=== PATIENT | female | born 1990 | race Caucasian/White ===

== ENCOUNTER → 2021-03-18 16:47 | Outpatient (CLI) | payer BC, SELFPAY ==
[2021-03-18 18:13] LABS: Add Manual Diff / Slide Review NO; Basophils Absolute Auto 0 /uL (0-100); Basophils Percent Auto 0.3 % (0-2); Eosinophils Absolute Auto 100 /uL (0-450); Eosinophils Percent Auto 0.8 % (2-4); Hematocrit 37.5 % (36-46); Hemoglobin 12.2 g/dL (12.0-16.0); Lymphocytes Absolute Auto 2200 /uL (1100-4500); Lymphocytes Percent Auto 19.6 % (25-40); Mean Corpuscular HGB Conc 32.6 % (30-36); Mean Corpuscular Hemoglobin 27.6 PG (26-34); Mean Corpuscular Volume 84.9 fL (80-100); Monocytes Absolute Auto 700 /uL (0-900); Monocytes Percent Auto 6.2 % (3-14); Neutrophils Absolute Auto 8100 /uL (1500-7000); Neutrophils Percent Auto 73.1 % (50-75); Platelet Count 302 X10^3/uL (150-400); Red Blood Cell Count 4.41 X10^6/uL (4.0-5.2); Red Cell Distribution Width 13.3 % (11.6-14.8); White Blood Cell Count 11.1 X10^3/uL (4.5-11.0)
[2021-03-18 18:35] LABS: Hemoglobin A1C% w Est Avg Glu 5.3 % (4.0-6.0)
[2021-03-18 19:06] LABS: Hepatitis B Surface Antigen NEGATIVE s/c (NEGATIVE); Rubella Antibody IgG 98.2 IU/mL (>15)
[2021-03-18 19:28] LABS: HIV 1 & 2 Ab/Ag 4th Gen Combo NEGATIVE (NEGATIVE); Hep C Virus Ab w/Reflex Quant NEGATIVE s/c (NEGATIVE)
[2021-03-18 19:48] LABS: Appearance Urine UA CLEAR; Bilirubin Urine UA NEGATIVE (NEGATIVE); Color Urine UA YELLOW; Glucose Urine UA NEGATIVE (Negative); Ketones Urine UA NEGATIVE (NEGATIVE); Leukocyte Esterase Urine UA NEGATIVE (NEGATIVE); Nitrite Urine UA NEGATIVE (Negative); Occult Blood Urine UA NEGATIVE (Negative); Protein Urine UA NEGATIVE (Negative); Specific Gravity Urine UA 1.015 (1.000-1.035); Urobilinogen Urine UA 0.2 E.U./dL (0.2)
[2021-03-19 06:09] LABS: RPR Screen Non Reactive (Non Reactive)
[2021-03-19 12:46] LABS: Varicella IgG Antibody 455 index (Immune >165)
== END ==
PROVIDERS: PCP Family Medicine; Referring Provider Family Medicine; Visit Provider Family Medicine
DX: Z34.01 Encounter for supervision of normal first pregnancy, first trimester (principal)
CPT/HCPCS: 36415; 80055; 81003; 83036; 86787; 86803; 86850; 86900; 86901; 87086; 87389

== ENCOUNTER → 2021-05-20 09:29 | Outpatient (CLI) | payer BC, SELFPAY ==
[2021-05-22 18:26] LABS: AFP, Serum 41.3 ng/mL (.); Calc Gestational Age Ultrasound (.); Estriol, Free 1.16 ng/mL (.); Inhibin A, Dimeric 141.94 pg/mL (.); Inhibin A, MoM 1.21 (.); Maternal Ethnicity Other (.); Maternal Weight 259 lbs (.); Number of Fetuses No (.); OSBR Risk 1 IN 4664 (.); Results Report (.); Test Results *Screen Negative* (.); hCG, MoM 1.44 (.); hCG, Serum 30347 mIU/mL (.)
== END ==
PROVIDERS: PCP Family Medicine; Referring Provider Family Medicine; Visit Provider Family Medicine
DX: Z34.02 Encounter for supervision of normal first pregnancy, second trimester (principal); Z3A.17 17 weeks gestation of pregnancy
CPT/HCPCS: 36415; 82105; 82677; 84702; 86336

== ENCOUNTER → 2021-06-04 15:25 | Outpatient (CLI) | payer BC, SELFPAY ==
--- NOTE | 2021-06-04 15:26 | DI.US.S_ITS ---
PROCEDURE: US OB >= 14 WEEKS FETUS INDICATIONS: ANATOMIC SURVEY OUTSIDE/PRIOR DATING DATA: Last menstrual period (LMP): January 15, 2021. LMP-based estimated date of delivery (HDUSON): October 22, 2021. First dating scan (date and location): June 04, 2021. Estimated date of delivery (HUDSON) from first dating scan: October 17, 2021. TECHNIQUE: Real-time scanning was performed of the fetus, with image documentation and biometric measurements. Endovaginal scanning: A 4 COMPARISON: None. FINDINGS: General: A single living intrauterine gestation is present. Presentation: Oblique cephalic Placenta: Placental position is anterior, without previa. Amniotic fluid index: 16.9 cm, normal range is 5-24 cm. heart rate: 131 beats per minute. Maternal cervical canal: Closed 4.0 cm long. Normal lower limit is 2.5 cm. biometrics: Biparietal diameter: 20 weeks 2 days Head circumference: 21 weeks 0 days Abdominal circumference: 21 weeks 1 day Femur length: 20 weeks 2 days Estimated gestational age from initial scan: not applicable. Composite gestational age from present scan: 20 weeks 5 days Estimated weight and percentile: 375 grams; 85th percentile Measurement variability for biometric dating: +/- 7 days from 14 weeks to 15 weeks 6 days gestation, +/- 10 days from 16 weeks to 21 weeks 6 days gestation, +/- 2 weeks from 22 weeks to 27 weeks 6 days gestation, +/- 3 weeks for 28 weeks gestation or later. weight reference: 4500 g or EFW >90/95% is considered macrosomia or large for gestational age. EFW <10% is small for gestational age. EFW 5% or less is considered intra-uterine growth restriction. Anatomic survey: Neuro: Ventricles are non-dilated at less than 10 mm. Cisterna magna is normal at 3-11 mm. Cerebellum is normal in size and morphology. Nuchal skin fold: Normal at less than 6 mm between 14-21 weeks gestational age. Face: Facial profile is normal. Nodes and lips not well visualized.. Spine: No evidence for spina bifida. Heart: Not well visualized. Diaphragm: Not well visualized. Stomach: Left-sided stomach is present. Kidneys: Not well visualized. Cord: 3-vessel cord has orthotopic insertion. Bladder: Normal in size. Extremities: Feet not well visualized. Upper extremities normal.. IMPRESSION: 1. Single living intrauterine with ultrasound estimated gestational age of 20 weeks 5 days corresponding to ultrasound HUDSON of October 17, 2021. 2. Limited anatomic survey with poor visualization of the face, heart, chest/diaphragm, kidneys and feet. Recommend short-term follow-up at 22-24 weeks gestation. Dictated by: April Deleon MD, PhD on 06/05/2021 at 11:40 Approved by: April Deleon MD, PhD on 06/05/2021 at 11:44
== END ==
PROVIDERS: PCP Family Medicine; Referring Provider Family Medicine; Visit Provider Family Medicine
DX: Z34.02 Encounter for supervision of normal first pregnancy, second trimester (principal); Z3A.20 20 weeks gestation of pregnancy
CPT/HCPCS: 76811

== ENCOUNTER → 2021-07-01 12:11 | Outpatient (CLI) | payer BC, SELFPAY ==
--- NOTE | 2021-07-01 12:12 | DI.US.S_ITS ---
PROCEDURE: US OB FOLLOW UP INDICATIONS: RE-EVALUATE OUTSIDE/PRIOR DATING DATA: Last menstrual period (LMP): 01/15/2021 . LMP-based estimated date of delivery (HUDSON): 10/22/2021 . First dating scan (date and location): 06/04/2021 Estimated date of delivery (HUDSON) from first dating scan: 10/17/2021 . TECHNIQUE: Real-time scanning was performed of the fetus, with image documentation. Endovaginal scanning: Not performed COMPARISON: [facility], OB >= 14 WEEKS FETUS, 06/04/2021, 15:51. FINDINGS: A single living intrauterine gestation is present. Presentation: Transverse with head to the right. Placenta: Placental position is anterior , without previa. Amniotic fluid index: 15.8 cm, normal range is 5-24 cm. heart rate: 130 beats per minute. Maternal cervical canal: 6.7 cm long. Normal lower limit is 2.5 cm. Estimated gestational age from initial scan: 20 weeks 5 days. Additional findings: heart, diaphragm, nose and lips, kidneys, and feet are all within normal limits. IMPRESSION: 1. Living 2nd trimester intrauterine 2. Limited additional imaging of structures not seen well on the previous study demonstrates that the structures are well visualized and are unremarkable. Dictated by: Jayme Delatorre M.D. on 07/01/2021 at 17:29 Approved by: Jayme Delatorre M.D. on 07/01/2021 at 17:33
== END ==
PROVIDERS: PCP Family Medicine; Referring Provider Family Medicine; Visit Provider Family Medicine
DX: Z36.2 Encounter for other antenatal screening follow-up (principal); Z3A.20 20 weeks gestation of pregnancy
CPT/HCPCS: 76816

== ENCOUNTER → 2021-07-29 09:41 | Outpatient (CLI) | payer BC, SELFPAY ==
[2021-07-29 13:43] LABS: Add Manual Diff / Slide Review NO; Basophils Absolute Auto 0 /uL (0-100); Basophils Percent Auto 0.3 % (0-2); Eosinophils Absolute Auto 100 /uL (0-450); Eosinophils Percent Auto 0.9 % (2-4); Hemoglobin 11.5 g/dL (12.0-16.0); Lymphocytes Absolute Auto 1700 /uL (1100-4500); Lymphocytes Percent Auto 15.2 % (25-40); Mean Corpuscular HGB Conc 32.9 % (30-36); Mean Corpuscular Hemoglobin 27.4 PG (26-34); Mean Corpuscular Volume 83.2 fL (80-100); Monocytes Absolute Auto 500 /uL (0-900); Monocytes Percent Auto 4.9 % (3-14); Neutrophils Absolute Auto 8700 /uL (1500-7000); Neutrophils Percent Auto 78.7 % (50-75); Platelet Count 298 X10^3/uL (150-400); Red Cell Distribution Width 13.6 % (11.6-14.8)
[2021-07-29 15:22] LABS: GTT (PREG) 1 Hour PP 50gm Dose 118 mg/dL (76-139)
== END ==
PROVIDERS: PCP Family Medicine; Referring Provider Family Medicine; Visit Provider Family Medicine
DX: Z34.90 Encounter for supervision of normal pregnancy, unspecified, unspecified trimester (principal); Z3A.28 28 weeks gestation of pregnancy
CPT/HCPCS: 36415; 82950; 85025

== ENCOUNTER → 2021-09-13 14:58 | Outpatient (CLI) | payer BC, SELFPAY ==
--- NOTE | 2021-09-13 14:59 | DI.US.S_ITS ---
PROCEDURE: US OB LIMITED INDICATIONS: growth u/s for size > dates OUTSIDE/PRIOR DATING DATA: Last menstrual period (LMP): 01/15/2021. LMP-based estimated date of delivery (HUDSON): 10/22/2021. First dating scan (date and location): 06/04/2021. Estimated date of delivery (HUDSON) from first dating scan: 10/17/2021. The calculations are made using the ultrasound generated HUDSON of 10/17/2021. TECHNIQUE: Real-time scanning was performed of the fetus, with image documentation. Endovaginal scanning: Not performed COMPARISON: None. FINDINGS: A single living intrauterine gestation is present. Presentation: Vertex. Placenta: Placental position is anterior, without previa. Amniotic fluid index: 10.1 cm, normal range is 5-24 cm. heart rate: 120 beats per minute. Maternal cervical canal: Not well seen. Estimated gestational age from initial scan: 35 weeks 1 day. Estimated gestational age based on current exam biometry: 34 weeks 0 days Biparietal diameter: 8.3 cm. Head circumference: 30.3 cm. Abdominal circumference: 30.0 cm. Femur length: 6.8 cm. Estimated weight: 2355 g, 21st percentile. IMPRESSION: Single live intrauterine gestation with biometric parameters as described above. Dictated by: Stefan Valencia M.D. on 09/13/2021 at 16:22 Approved by: Steafn Valencia M.D. on 09/13/2021 at 16:24
== END ==
PROVIDERS: PCP Family Medicine; Referring Provider Family Medicine; Visit Provider Family Medicine
DX: Z36.88 Encounter for antenatal screening for fetal macrosomia (principal); Z3A.34 34 weeks gestation of pregnancy
CPT/HCPCS: 76815

== ENCOUNTER → 2021-09-23 09:05 | Outpatient (CLI) | payer BC, SELFPAY ==
[2021-09-24 10:56] LABS: Strep Grp B PCR POS for Grp B Strep
== END ==
PROVIDERS: PCP Family Medicine; Visit Provider Family Medicine
DX: Z36.85 Encounter for antenatal screening for Streptococcus B (principal)
CPT/HCPCS: 87653

== ENCOUNTER 2021-10-28 06:48 | Inpatient (IN) | payer BC, SELFPAY ==
[2021-10-28 07:41] VITALS: BP 124/74
[2021-10-28] MEDS: LACTATED RINGERS 1,000 ML 100 ML IV ×3 (08:15→22:07)
[2021-10-28 08:27] LABS: Add Manual Diff / Slide Review NO; Basophils Absolute Auto 100 /uL (0-100); Basophils Percent Auto 0.5 % (0-2); Eosinophils Absolute Auto 100 /uL (0-450); Eosinophils Percent Auto 0.9 % (2-4); Hematocrit 36.3 % (36-46); Hemoglobin 12.2 g/dL (12.0-16.0); Lymphocytes Absolute Auto 1800 /uL (1100-4500); Lymphocytes Percent Auto 16.9 % (25-40); Mean Corpuscular HGB Conc 33.8 % (30-36); Mean Corpuscular Hemoglobin 26.9 PG (26-34); Mean Corpuscular Volume 79.8 fL (80-100); Monocytes Absolute Auto 600 /uL (0-900); Monocytes Percent Auto 5.7 % (3-14); Neutrophils Absolute Auto 8300 /uL (1500-7000); Platelet Count 281 X10^3/uL (150-400); Red Blood Cell Count 4.54 X10^6/uL (4.0-5.2); Red Cell Distribution Width 14.5 % (11.6-14.8); White Blood Cell Count 10.9 X10^3/uL (4.5-11.0)
[2021-10-28] MEDS: OXYTOCIN PREMIX 30 UNIT/500 ML PLAST..BAG IV (09:04)
[2021-10-28] MEDS: PENICILLIN G POTASSIUM 5,000,000 UNIT in DEXTROSE 5% IN WATER 250 ML IV (09:10)
--- NOTE | 2021-10-28 09:17 | PM.HP.1 ---
History of Present Illness History of Present Illness Chief complaint: induction of labor Patient History Medical History (Updated 03/08/21 @ 15:47 by Joan Crockett, RN) Rash and nonspecific skin eruption (~07/2020) Skin mole Surgical History (Updated 03/08/21 @ 15:42 by Joan Crockett, RN) History of carpal tunnel release (~2014) [place] teeth extracted Family & Social History Family History (Updated 04/08/21 @ 21:58 by Anaya Alamo) Mother Skin cancer of trunk Bone spur of foot Father Slipped intervertebral disc Grandmother No problems noted. Grandfather Stroke Cancer Grandmother Diabetes mellitus Amputation leg, bilat Grandfather Cancer Sister Ovarian cyst Brother Benign tumor of skin of leg H/O bone graft Social History: household members significant other lives independently Yes caregiver/support person No Tobacco & Substance use: Smoking Status Former smoker alcohol intake former Meds Home Medications and Allergies Home Medications Medication Instructions Recorded Confirmed Type prenat.vits,antelmo,ojd-rqns-[place] 1 tab PO DAILY 03/08/21 05/20/21 History breast pump #1 ea 06/17/21 06/17/21 Rx Allergies Allergy/AdvReac Type Severity Reaction Status Date / Time grass pollen Allergy Intermediate Verified 05/20/21 08:42 squash Allergy Intermediate Numbness Verified 05/20/21 08:42 to mouth. No tongue or airway swelling. Exam Vital Signs (past 8 hours): - 10/28/21 07:41 Blood Pressure 124/74 Objective Labs Result Diagrams: 10/28/21 08:15 Labs: Laboratory Results - last 24 hr 10/28/21 10/28/21 08:15 08:15 WBC 10.9 RBC 4.54 Hgb 12.2 Hct 36.3 MCV 79.8 L MCH 26.9 MCHC 33.8 RDW 14.5 Plt Count 281 Neut % (Auto) 76.0 H Lymph % (Auto) 16.9 L [place] % (Auto) 5.7 Eos % (Auto) 0.9 L Baso % (Auto) 0.5 Neut # (Auto) 8300 H Lymph # (Auto) 1800 [place] # (Auto) 600 Eos # (Auto) 100 Baso # (Auto) 100 Blood Type A Positive Antibody Screen Negative Assessment & Plan Time Spent With Patient Critical Care time: I spent a total of [] minutes of critical care time on this patient's care today; this time is exclusive of procedural time.
--- NOTE | 2021-10-28 09:51 | PM.OBHP.IH.1 ---
OB HPI Date/Time Date of admission: 10/28/21 Date Patient Seen: 10/28/21 Time Patient Seen: 08:00 History of Present Condition Chief complaint: induction of labor HUDSON Calculator Estimated Delivery Date Method Current WG Current Estimate 10/22/21 LMP (Certain) 40w 6d Other Estimates 10/25/21 Ultrasound #1 40w 3d Estimated Gestational Age (weeks): 40w6d : 1 Para: 0 Narrative: Pt is a 31yo at 40w6d here for post-dates IOL. She denies any recent vaginal bleeding, LOF, or contractions. She is feeling her baby move regularly. No complications with her . care: good care, initiated at week # (8) and pounds weight gain (38) Dating criteria OB: LMP confirmed by 1st trimester US Ultrasounds: normal 1st trimester US and normal mid trimester US Obstetrical complications: none Medical complications OB: none Indications Indication for induction OB: post dates Preadmission Labs Last OB Lab Results: Blood Type A Positive 10/28/21 08:15 10/28/21 Antibody Screen Negative 10/28/21 08:15 10/28/21 Hematocrit 36.3 % (36-46) 10/28/21 08:15 10/28/21 Hemoglobin 12.2 g/dL (12.0-16.0) 10/28/21 08:15 10/28/21 Hepatitis B Surface Antigen Negative s/c (NEGATIVE) 03/18/21 17:01 03/18/21 Hepatitis C Antibody Negative s/c (NEGATIVE) 03/18/21 17:01 03/18/21 Rubella Antibody 98.2 IU/mL (>15) 03/18/21 17:01 03/18/21 Varicella-Zoster IgG Antibody 455 index (Immune >165) 03/18/21 17:01 03/18/21 Glucose 1 Hour 118 mg/dL (76-139) 07/29/21 11:20 07/29/21 Group B Streptococcus (PCR) Pos for grp b strep H 09/23/21 09:05 09/23/21 -: Urine: negative Genetic Screens: Quad screen: Normal External Labs -: Urine: negative Evaluation Evaluation Baseline heart rate: 120 Variability: Moderate (11-25) monitor accelerations: Present Monitor Decelerations: Absent Status: Category l PFS Medical History (Updated 03/08/21 @ 15:47 by Joan Crockett RN) Rash and nonspecific skin eruption (~07/2020) Skin mole Surgical History (Updated 03/08/21 @ 15:42 by Joan Crockett RN) History of carpal tunnel release (~2014) [place] teeth extracted Family History (Updated 04/08/21 @ 21:58 by Anaya Alamo) Mother Skin cancer of trunk Bone spur of foot Father Slipped intervertebral disc Grandmother No problems noted. Grandfather Stroke Cancer Grandmother Diabetes mellitus Amputation leg, bilat Grandfather Cancer Sister Ovarian cyst Brother Benign tumor of skin of leg H/O bone graft Social History marital status: unmarried,living together (Darrel, life partner) number of children: 0 household members: significant other lives independently: Yes caregiver/support person: No housing: house pets and animals: No education level: college ([employer], baking & pastry arts.) occupational status: employed (Full-time [employer], also part-time at [employer] a couple nights/week. ) current occupational exposures/hazards: No special katy needs: No seatbelt use: always working smoke detector in home: Yes fire extinguisher in home: Yes carbon monox detector in home: Yes firearms in home: Yes firearms unloaded and locked: Yes do you feel safe at home: Yes Smoking Status: Former smoker Tobacco: How many years used: 10 quit status: quit date established (01/2021) second hand exposure: Yes (Darrel goes outside to smoke, usually she is not exposed. ) alcohol intake: former (Pre-: occasional wine, none since . ) substance use type: marijuana (Pre-. Quit w . Detailed discussion, encouraged her to continue to abstain, also avoid w BF.) during the past year weight has: increased > 10 lbs well-balanced diet: daily or most days daily servings fruits/ve-4 caffeine: Yes (1 cup coffee/day. ) Type(s) of exercise: walking (1 hr walk , 3-4 times a week. ) and normal ROM and activity (Busy, on her feet all day at work. ) frequency: daily Meds Home Medications and Allergies Home Medications Medication Instructions Recorded Confirmed Type prenat.vits,antelmo,ztj-yqob-ucqdu 1 tab PO DAILY 03/08/21 05/20/21 History breast pump #1 ea 06/17/21 06/17/21 Rx Allergies Allergy/AdvReac Type Severity Reaction Status Date / Time grass pollen Allergy Intermediate Verified 05/20/21 08:42 squash Allergy Intermediate Numbness Verified 05/20/21 08:42 to mouth. No tongue or airway swelling. OB Exam Narrative Exam Narrative: Gen: NAD, sitting comfortably in bed, appears well CV: RRR, no murmurs Resp: clear to auscultation bilaterally Abd: soft, nontender, gravid Ext: trace edema Objective Labs Result Diagrams: 10/28/21 08:15 Labs: Laboratory Results - last 24 hr 10/28/21 10/28/21 08:15 08:15 WBC 10.9 RBC 4.54 Hgb 12.2 Hct 36.3 MCV 79.8 L MCH 26.9 MCHC 33.8 RDW 14.5 Plt Count 281 Neut % (Auto) 76.0 H Lymph % (Auto) 16.9 L [place] % (Auto) 5.7 Eos % (Auto) 0.9 L Baso % (Auto) 0.5 Neut # (Auto) 8300 H Lymph # (Auto) 1800 [place] # (Auto) 600 Eos # (Auto) 100 Baso # (Auto) 100 Blood Type A Positive Antibody Screen Negative Assessment and Plan Assessment and Plan Assessment and Plan narrative: Pt is a 31yo at 40w6d here for post-dates IOL. has been uncomplicated. GBS positive, Rh positive. Low score from clinic 7 (3.5/50/-3,soft,ant). - GBS positive, start penicillin prophylaxis now - Expectant management, anticipate - Start pitocin titrate as tolerated - FHT reassuring - Natural methods for pain control for now, pt may desire epidural in the future - Plan for AROM after adequate GBS prophylaxis
[2021-10-28 11:48] LABS: COVID19 -Nasal RAPID Negative (Negative)
--- NOTE | 2021-10-28 13:12 | PM.OBPNLAB ---
Date/Time Date Patient Seen: 10/28/21 Time Patient Seen: 13:12 Pain Control Pain control: tolerating well Pelvic Exam Dilation (cm): 4 Effacement (%): 50 station: 0 Amniotic membrane status: Ruptured Comments: After informed consent, AROM performed with production of clear fluid. Contractions Contractions on admission: none Monitor mode: External Pitocin rate (mU/min): 8 Contraction frequency (min): 4 Contraction pattern: Regular Status status: Category l Heart Rate Baseline: 120 Monitor Accelerations: Present Monitor Decelerations: Absent Monitor Variability: Moderate Assessment and Plan Comments: Pt is a 31yo at 40w6d here for post-dates IOL.? has been uncomplicated.? GBS positive, Rh positive.? After adequate GBS prophylaxis, AROM performed with clear fluid. No significant cervical change yet. - GBS positive, continue penicillin prophylaxis - Expectant management, anticipate - Continue pitocin, titrate as tolerated - FHT reassuring - Natural methods for pain control for now, pt may desire epidural in the future
[2021-10-28] MEDS: PENICILLIN G POTASSIUM 3,000,000 UNIT/50 ML FROZ.PIGGY 100 UNIT IV ×2 (13:45→18:22)
[2021-10-28] MEDS: fentaNYL 250 MCG/5 ML INJ 100 MCG IV ×2 (15:34→16:41)
--- NOTE | 2021-10-28 19:33 | PM.OBPNLAB ---
Date/Time Date Patient Seen: 10/28/21 Time Patient Seen: 19:33 Pain Control Pain control: epidural Pelvic Exam Dilation (cm): 6 Effacement (%): 80 station: 0 Amniotic membrane status: Ruptured Contractions Monitor mode: External Pitocin rate (mU/min): 8 Contraction frequency (min): 5 Contraction pattern: Regular Intrauterine tone measurement: 90 Status status: Category ll Heart Rate Baseline: 120 Monitor Accelerations: Absent Monitor Decelerations: Variable Monitor Variability: Moderate Assessment and Plan Comments: Pt is a 31yo at 40w6d here for post-dates IOL.? has been uncomplicated.? GBS positive, Rh positive.? After adequate GBS prophylaxis, AROM performed with clear fluid.? Slow progress thus far with no change from 6cm in the last hour. IUPC placed to help guide pitocin titration, contractions not adequate. - Expectant management, anticipate - Continue pitocin, titrate as tolerated - FHT Category II with intermittent variable decels, continue with position changes. Will monitor closely as attempt to titrate pitocin to adequate MVUs with good cervical change - Consider amnioinfusion if decels continue - Epidural in place for pain control - GBS positive, continue penicillin prophylaxis
--- NOTE | 2021-10-28 20:30 | PM.OBPNLAB ---
Date/Time Date Patient Seen: 10/28/21 Time Patient Seen: 20:30 Pain Control Pain control: epidural Pelvic Exam Dilation (cm): 7 Effacement (%): 80 station: 0 Amniotic membrane status: Ruptured Contractions Monitor mode: External Pitocin rate (mU/min): 8 Contraction frequency (min): 4 Contraction pattern: Regular Intrauterine tone measurement: 90 Status status: Category ll Heart Rate Baseline: 120 Monitor Accelerations: Present Monitor Decelerations: Variable Monitor Variability: Moderate Assessment and Plan Comments: Pt is a 31yo at 40w6d here for post-dates IOL.? has been uncomplicated.? GBS positive, Rh positive.? After adequate GBS prophylaxis, AROM performed with clear fluid. IUPC placed to help guide pitocin titration, contractions not adequate. FSE now placed to help discern decels - could not tell if early or variable. Appear to be recurrent variable decels with contractions. Providing fluid bolus, additional position changes, oxygen. Will also start amnioinfusion. Plan to monitor closely. Pt did have some cervical change from last exam. - Closely monitoring Category II tracing - Continue pitocin for now, titrate as tolerated - Amnioinfusion with 500cc bolus followed by 300cc/hr - Epidural in place for pain control - GBS positive, continue penicillin prophylaxis
--- NOTE | 2021-10-28 20:50 | PM.PREOP ---
Pre-operative Note COVID-19 COVID-19 status: Negative Result date/Date tested (Pos, Neg/Pending): 10/28/21 Interval Note History & Physical reviewed/Exam performed by Physician: No Changes to H&P: No
--- NOTE | 2021-10-28 20:52 | PM.OBPNLAB ---
Date/Time Date Patient Seen: 10/28/21 Time Patient Seen: 20:52 Pain Control Pain control: tolerating well and epidural Pelvic Exam Dilation (cm): 7 Effacement (%): 80 station: 0 Amniotic membrane status: Ruptured Contractions Monitor mode: External Pitocin rate (mU/min): 0 Contraction frequency (min): 4 Contraction pattern: Regular Intrauterine tone measurement: 60 Status status: Category ll Heart Rate Baseline: 120 Monitor Accelerations: Present Monitor Decelerations: Prolonged and Variable Monitor Variability: Moderate Assessment and Plan Comments: Pt is a 31yo at 40w6d here for post-dates IOL.? has been uncomplicated.? GBS positive, Rh positive.? After adequate GBS prophylaxis, AROM performed with clear fluid.? IUPC placed to help guide pitocin titration, contractions not adequate.? FSE placed to help discern decels - could not tell if early or variable.? Recurrent variable decels with contractions.? Now with prolonged decel of 9 minutes down to the 40s. Resolved after position changes including hands and knees. Pitocin off, unable to restart due to nonreassuring heart tones. Will proceed with primary for nonreassuring heart tones. Discussed risks vs benefits of surgery with the pt. Risks including but not limited to bleeding/hemorrhage, infection, injury to other organs such as bowel and bladder, injury to fetus. The pt is agreeable to blood transfusion if indicated. Consent was signed and placed in chart after all questions were answered. The pt will receive 2g Ancef prior to surgery, and SCDs to be placed.
[2021-10-28] MEDS: CEFAZOLIN 2 GM/20 ML SYRINGE IV (21:35)
--- NOTE | 2021-10-28 21:47 | SUR.OPER ---
Supine on Padded OR bed, head on pillow, safety belt at thigh, arms secured on padded arm boards at <90 degrees abduction. Bump under right buttock. Legs uncrossed with pillow under knees, gel pad to heels, tape over blanket to lower legs.
--- NOTE | 2021-10-28 21:50 | SUR.OPER ---
VIABLE FEMALE INFANT DELIVERED AT 2141. CORD BLOOD AND PLACENTA TO OB WITH RN.
--- NOTE | 2021-10-28 22:35 | P.OP_ITS ---
Operative Date/Time/Diagnoses Date of procedure: 10/28/21 Time of procedure: 22:30 Pre-op diagnosis: 40w6d gestation GBS positive Rh positive Nonreassuring heart tones Post-op diagnosis: same Procedure & Clinicians Procedure: Primary Same procedure as scheduled: Yes Indications: Nonreassuring heart tones Surgeon: Nadia Gonzalez Click Yes if Unassisted: No Sfdc Solution Architect: Lisa Medeiros Anesthesia Type: Epidural Operative Notes Findings: Normal uterus, ovaries, and tubes Closure Type: primary Specimen(s): cord blood and cord pH Intraoperative meds administered: Ketorolac and Pitocin Applied: Catheter Estimated Blood Loss (mL): 1,200 Blood products transfused: none Procedure in detail: The patient was taken to the operating room where epidural anesthesia was rebolused. She was then prepared and draped in the normal sterile fashion in the dorsal supine position with a leftward tilt. Anesthesia was tested and found to be adequate. A Pfannensteil skin incision was then made with the scalpel and carried through to the underlying layer of fascia with the scalpel. The fascia was incised in the midline and the incision extended laterally with the Grant scissors. The superior aspect of the fascial incision was then grasped with Germán clamps, elevated with the help of the nursing surgical services director, and the underlying rectus muscles dissected off bluntly and sharply where needed. Attention was then turned to the inferior aspect of the incision which, in a similar fashion, was grasped, tented up with Germán clamps, and the rectus muscle dissected off bluntly and sharply with Grant scissors. The rectus muscles were then in the midline, and the peritoneum was identified and entered bluntly. The peritoneal incision was then extended with good visualization of the bladder. Retraction was provided by the nursing surgical services director. The bladder blade was then inserted and the vesicouterine peritoneum identified, grasped with pick-ups and entered sharply with the Metzenbaum scissors. The incision was then extended laterally and the bladder flap created digitally. The bladder blade was then reinserted and the lower uterine segment incised in a transverse fashion with the scalpel, with the nursing surgical services director providing suction. The uterine incision was then extended superolaterally by pulling superolaterally on both sides. The bladder blade was removed the infant's head was flexed out of OA position and delivered atraumatically, with fundal pressure by the nursing surgical services director. Nuchal cord x 1 was reduced af delivery. The nose and mouth were suctioned with bulb suction and the cord was clamped and cut after 45 seconds. The was handed off to the waiting nursing staff. Cord blood was collected for Rh status. Cord gases were sent. The placenta was then delivered with gentle cord traction. The uterus was then cleared of all clots and debris. The uterine incision was repaired with O Vicryl in a running, locked fashion. A second layer of the same suture was used to obtain excellent hemostasis. The uterus was returned to the abdomen. The gutters were cleared of all clots. Hysterotomy was investigated and found to be hemostatic. The bladder flap was closed with 2-O Chromic. The peritoneum was closed with 3-O Vicryl. The fascia was reapproximated with O-Vicryl in a running fashion. The subcutaneous tissue was reapproximated with 3-O Vicryl. The skin was closed with 4-O Vicryl. The nursing surgical services director helped with retraction during closures. SPONGE AND NEEDLE COUNTS: Correct x3. DRESSING: Aquacel ANTICOAGULATION: SCDs applied prior to Surgery Preop antibiotics given (see MAR). The patient was taken to recovery room having tolerated procedure well. Complications: none Baby 1: Gender: Female Presentation: vertex Placental Delivery Description: Spontaneous Cord Vessel Description: 3 Vessels score (1 min): 8 score (5 min): 9 weight: 7 lb 4.968 oz Post-operative Condition: stable Disposition: PACU Aftercare: routine postop
[2021-10-28 22:37] VITALS: BP 111/46; PULSE 69; RESP 12; TEMP 36.7; O2SAT 100
[2021-10-28 22:41] VITALS: BP 117/51; PULSE 66; RESP 16; O2SAT 99
[2021-10-28 22:47] VITALS: BP 163/73; PULSE 65; RESP 20; O2SAT 99
[2021-10-28 22:52] VITALS: BP 136/66; PULSE 75; RESP 16; TEMP 36.7; O2SAT 98
--- NOTE | 2021-10-28 23:06 | SUR.PHASEI ---
Pt transferred to in bed iwth this RN. Pt awake, alert, scant lochia. Bed in low position. Dad at beside with baby. SBAR report at bedside to Lily Bradley
[2021-10-28] MEDS: ONDANSETRON 4 MG/2 ML INJ IV (23:29)
[2021-10-29] MEDS: KETOROLAC 30 MG/ML VIAL IV ×2 (04:04→11:05)
[2021-10-29 06:44] LABS: Hematocrit 29.9 % (36-46)
[2021-10-29] MEDS: PRENATAL VIT,CALC/IRON/FOLIC 1 TABLET 1 TAB PO (09:03)
[2021-10-29] MEDS: DOCUSATE 100 MG CAPSULE 200 MG PO (09:03)
--- NOTE | 2021-10-29 14:08 | PM.OBPN.1 ---
Subjective - OB Subjective Date Patient Seen: 10/29/21 Time Patient Seen: 07:45 Interval history: The pt reports that she is overall feeling well. Her pain is well controlled. She has not yet passed flatus or ambulated. Her colindres is still in place. Her lochia has been appropriate. She is having some difficulty with latching for . Exam Vital Signs (past 8 hours): Oxygen Delivery Method Room Air Resp Auscultation: clear to auscultation bilaterally Cardio Rate: regular rate Rhythm: regular rhythm Heart Sounds: S1 normal, S2 normal and no murmurs GI Inspection: non-distended, incision (dressing dry/intact, minimal blood centrally on dressing) and obesity Palpation: soft, No guarding and tender (appropriately tender) Auscultation: normal bowel sounds Other: fundus firm and below the umbilicus Extrem Right upper extremity: edema (trace) Objective Labs Result Diagrams: 10/29/21 06:30 Labs: Laboratory Results - last 24 hr 10/29/21 06:30 Hgb 10.0 L Hct 29.9 L Assessment & Plan Plan Comments: Pt is a 31yo POD#1 s/p primary for nonreassuring heart tones without complications. Pt did have mild hemorrhage controlled with pitocin alone. Pt doing well. - Normal postoperative care - support, to see today Time Spent With Patient Time: Total time spent is greater than 50% in coordination of care (as documented) at patient's floor/unit and/or counseling patient: Time with patient: 15-24 minutes
[2021-10-29] MEDS: IBUPROFEN 600 MG TABLET PO ×2 (16:02→21:53)
[2021-10-29] MEDS: ACETAMINOPHEN 325 MG TABLET 650 MG PO ×2 (16:03→21:54)
[2021-10-30] MEDS: IBUPROFEN 600 MG TABLET PO ×2 (06:40→13:32)
[2021-10-30] MEDS: ACETAMINOPHEN 325 MG TABLET 650 MG PO ×2 (06:40→13:32)
[2021-10-30] MEDS: DOCUSATE 100 MG CAPSULE 200 MG PO (08:37)
[2021-10-30] MEDS: PRENATAL VIT,CALC/IRON/FOLIC 1 TABLET 1 TAB PO (08:37)
[2021-10-30] MEDS: OXYCODONE IR 5 MG TABLET PO ×2 (08:37→13:33)
--- NOTE | 2021-10-30 10:40 | P.DS_ITS ---
Discharge Providers Provider Date of admission: 10/28/21 06:48 Discharge Date: 10/30/21 Primary care physician: Stefan Sheridan MD Consults: 10/28/21 22:44 Consult to Production Support Specialist Routine Comment: Discharge provider: Nadia Gonzalez MD Summary Hospital Course Date Patient Seen: 10/30/21 Time Patient Seen: 08:00 Diagnoses: 40w6d gestation GBS positive Rh positive Nonreassuring heart tones hemorrhage Hospital Course: The pt presented for postdates IOL. She received adequate GBS prophylaxis with penicillin. Pitocin was initiated. AROM was performed with clear fluid present. The pt gradually progressed. IUPC was placed to better titrate her pitocin. The pt began having recurrent decels. FSE was placed, and it was determined the decels were variables. Amnioinfusion was initiated. The pt then had a prolonged decel to the 40s. The pitocin was stopped, and could not be restarted due to nonreassuring FHT. The pt underwent primary . There was heavy bleeding after the placenta was removed that was controlled with pitocin. The pt tolerated surgery well. , there were no complications. At the time of discharge she was voiding, ambulating, and passing flatus without difficulty. Her lochia was decreasing appropriately. Her pain was well controlled. She was with some issues with latch, and was seen by . She will f/u in 1 week for incision check, and with as well. Peripartum Data Delivery Method: Section Procedures: Primary complications: none [place] 1: Gender: Female Disposition of : home Discharge Diagnosis (1) S/P : Status: Acute (2) Non-reassuring heart tones, delivered, current hospitalization: Status: Acute Time Spent with Patient Time attestation: Total time spent providing and/or coordinating discharge services: Objective Labs Result Diagrams: 10/29/21 06:30 Exam Vital Signs (past 8 hours): Oxygen Delivery Method Room Air Resp Auscultation: clear to auscultation bilaterally Cardio Rate: regular rate Rhythm: regular rhythm Heart Sounds: S1 normal, S2 normal and no murmurs GI Inspection: non-distended and incision (dressing c/d/i) Palpation: soft, No guarding and tender (appropriately tender) Auscultation: normal bowel sounds Other: fundus firm and below the umbilicus Extrem Right upper extremity: No no edema Discharge Plan Discharge Plan Patient Disposition: Home Discharge orders & Medications Prescriptions: New acetaminophen 325 mg Tablet 650 mg PO Q6H Qty: 60 0RF docusate sodium 100 mg Capsule 200 mg PO DAILY Qty: 30 0RF ibuprofen 600 mg Tablet 600 mg PO Q6H Qty: 60 0RF oxycodone 5 mg Tablet 5 mg PO Q4H PRN (Reason: Pain, Moderate (4-6)) Qty: 30 0RF Continued (DME) breast pump Device See Rx Instructions .ROUTE .MEDSUPPLY Qty: 1 0RF Rx Instructions: As directed prenat.vits,antelmo,[id number] Tablet 1 tab PO DAILY 0RF Follow up/Referrals: Stefan Sheridan MD [Primary Care Provider] - Nadia Gonzalez MD [Physician] - 6 Weeks (Call to schedule or schedule your follow up appointment at baby's appointment.) Diet/Activity/Treatments Diet: Diet as Tolerated and Regular Skin/Wound/Dressing Care Report to your healthcare provider any signs of infection, such as:: chills, fever, increased pain and unusual drainage Visit Report/Discharge Packet Instructions: DI for Stand Alone Forms: Discharge: Care Visit Report Forms: Patient Portal/API, Stroke Signs & Symptoms Discharge Data Primary Care Provider: Stefan Sheridan Discharges patient from system. Discharge Date/Time: 10/30/21 14:10
[2021-10-30 11:14] VITALS: BP 114/60; PULSE 75; RESP 2; TEMP 36.9
== END 2021-10-30 14:10 | disposition home or self-care (01) | DRG 787 ==
PROVIDERS: Obstetrics & Gynecology; Admitting Provider Family Medicine; PCP Family Medicine; Referring Provider Family Medicine; Visit Provider Family Medicine
PROC: (CPT 59514; principal; 2021-10-28 21:15)
DX: O48.0 Post-term pregnancy (principal); O72.1 Other immediate postpartum hemorrhage; O99.824 Streptococcus B carrier state complicating childbirth; Z3A.40 40 weeks gestation of pregnancy; Z37.0 Single live birth; Z20.822 Contact with and (suspected) exposure to COVID-19; O76 Abnormality in fetal heart rate and rhythm complicating labor and delivery; O69.1XX0 Labor and delivery complicated by cord around neck, with compression, not applicable or unspecified
CPT/HCPCS: 01967; 01968; 36415; 59050; 59510; 59514; 85014; 85018; 85025; 86850; 86900; 86901; 87635; C9803; G0379; J0690; J1100; J1885; J2274; J2405; J2540; J2590; J3010

== ENCOUNTER → 2022-11-23 09:48 | Outpatient (CLI) | payer BC, SELFPAY ==
--- NOTE | 2022-11-23 11:44 | DI.CT.S_ITS ---
PROCEDURE: CT ABDOMEN PELVIS W CON INDICATIONS: Incisional hernia TECHNIQUE: After the administration of oral and intravenous contrast, axial sections were acquired from the lung bases to the pubic symphysis. Coronal and sagittal reformats were performed. For radiation dose reduction, the following was used: automated exposure control, adjustment of mA and/or kV according to patient size. COMPARISON:None. FINDINGS: Image quality: Excellent. Lung bases: Thin walled cystic lesion within the medial aspect of the left lower lobe measuring up to 3.7 cm likely represents cycle of prior trauma or infection. Lung bases are otherwise unremarkable.. Heart: No significant findings. ABDOMEN: Liver: Unremarkable. Gallbladder: Unremarkable Biliary ducts: Unremarkable. Pancreas: Unremarkable. Spleen: Unremarkable. Adrenal Glands: Unremarkable. Kidneys and Ureters: Unremarkable. Stomach and Bowel: Stomach, small bowel loops, and colon are unremarkable. No evidence of obstruction. Peritoneum: No abnormal intraperitoneal fluid. No free air. Ventral Wall: Small fat containing periumbilical hernia. Additional ventral hernia along the lower abdominal wall containing. There is a 3.1 x 2.5 cm fascial defect. No bowel identified within. No evidence of complication. of complication. Mild rectus diastasis. Abdominal Nodes: No retroperitoneal or mesenteric adenopathy by size criteria. Vessels: Aorta and inferior vena cava are normal in size. PELVIS: Pelvic Organs: Unremarkable. Bladder: Unremarkable. Pelvic Nodes: No enlarged lymph nodes. Miscellaneous: No inguinal hernias are seen. Bones: No acute osseous abnormality. IMPRESSION: Rectus diastasis with small midline umbilical hernia as well as a lower abdominal wall ventral hernia containing fat with a 3.0 x 2.5 cm fascial defect. No evidence of complication. No acute intra-abdominal/pelvic abnormality. Dictated by: Haris Denton D.O. on 11/23/2022 at 13:16 Approved by: Haris Denton D.O. on 11/23/2022 at 13:21
== END ==
PROVIDERS: PCP Family Medicine; Referring Provider Surgery; Visit Provider Surgery
DX: M62.08 Separation of muscle (nontraumatic), other site (principal); K42.9 Umbilical hernia without obstruction or gangrene; K43.9 Ventral hernia without obstruction or gangrene
CPT/HCPCS: 74177

== ENCOUNTER 2023-01-27 06:16 | Day surgery (SDC) | payer BC, SELFPAY ==
[2023-01-22 10:46] VITALS: BMI 46.5
[2023-01-27 07:09] VITALS: BMI 46.5
[2023-01-27 07:24] VITALS: BP 128/94; PULSE 84; RESP 16; TEMP 36.4; O2SAT 99
[2023-01-27] MEDS: LACTATED RINGERS 1,000 ML 42 ML IV (07:29)
--- NOTE | 2023-01-27 07:46 | PM.PREOP ---
Pre-operative Note COVID-19 COVID-19 status: Not tested Interval Note History & Physical reviewed/Exam performed by Physician: Yes Changes to H&P: No ASA Class (for procedural sedation): II
[2023-01-27] MEDS: CEFAZOLIN 2 GM/100 ML PREMIX 100 ML IV (08:11)
[2023-01-27] MEDS: CEFAZOLIN VIAL 1 GM in SODIUM CHLORIDE 0.9% 100 ML IV (08:11)
--- NOTE | 2023-01-27 08:25 | SUR.OPER ---
Supine on padded OR bed, head on pillow, arms secured on padded arm boards at <90 degrees abduction, legs uncrossed, safety belt at thigh, tape over blanket over lower legs.
[2023-01-27] MEDS: BUPIVACAINE 0.5% (PF) 30 ML, EPINEPHrine 0.15 MG INJ (08:42)
--- NOTE | 2023-01-27 09:12 | P.OP_ITS ---
Operative Date/Time/Diagnoses Date of procedure: 01/27/23 Time of procedure: 09:13 Pre-op diagnosis: Ventral incisional hernia Post-op diagnosis: same Procedure & Clinicians Procedure: Open ventral incisional hernia repair with mesh Same procedure as scheduled: Yes Surgeon: Gibson Hill Sr. Pricing Analyst: Oumar Chowdhury Anesthesia Type: General Operative Notes Procedure in detail: Ancef was administered. The patient was brought to the operating room, placed on the table in the supine position and general endotracheal anesthesia was induced. The abdomen was prepped and draped in the usual fashion. A time-out was performed. A 7 cm incision was made through the old scar. Dissection was carried down to the hernia sac. The hernia sac was freed from the fascial ring. The hernia appeared to contain preperitoneal fat. The hernia and its contents were reduced into the abdomen.. The fascia was then closed with multiple interrupted 0 Ethibond sutures in a transverse fashion. The subcutaneous adipose tissue was cleared off of the anterior sheath circumferentially about 2 cm in each direction. A piece of polypropylene mesh was trimmed to fit over the fascial closure and secured with Tisseel. Once the Tisseel was dried the subcutaneous adipose tissue was closed with interrupted 3- 0 Vicryl sutures. The skin was closed with multiple interrupted 3-0 Vicryl dermal sutures followed by a running 4 Monocryl subcuticular closure. Steri-Strips were applied and an abdominal binder was applied. EBL: 10 mL Post-operative Condition: stable Disposition: PACU
[2023-01-27 09:29] VITALS: BP 114/63; BP 117/74; PULSE 89; PULSE 96; RESP 20; RESP 31; TEMP 36.7; O2SAT 92; O2SAT 95
[2023-01-27 09:39] VITALS: BP 104/50; PULSE 87; RESP 31; O2SAT 93
[2023-01-27 09:44] VITALS: BP 105/63; PULSE 81; RESP 26; O2SAT 92
[2023-01-27 09:49] VITALS: BP 94/50; PULSE 74; RESP 26; TEMP 36.6; O2SAT 96
[2023-01-27] MEDS: OXYCODONE IR 5 MG TABLET PO (09:56)
[2023-01-27 10:16] VITALS: BP 101/69; PULSE 75; RESP 20; O2SAT 97
== END 2023-01-27 10:17 | disposition home or self-care (01) ==
PROVIDERS: PCP Family Medicine; Referring Provider Surgery; Visit Provider Surgery
PROC: (CPT 49593; principal; 2023-01-27 07:45)
DX: K43.2 Incisional hernia without obstruction or gangrene (principal)
CPT/HCPCS: 49593; C1781; J0171; J0690; J1100; J2250; J2405; J2704; J3010

== ENCOUNTER → 2024-09-27 13:00 | Outpatient (CLI) | payer BC, SELFPAY ==
--- NOTE | 2024-10-04 10:38 | DIET.OUTPTC ---
Dietary Outpatient Consultation Note Consultation Date: 09/27/2024 Assessment: 34 y F referred to dietitian for obesity and IBS. Met with pt over telehealth. Consents to telehealth. Zuleima reports wanting to work on consistent and adequate intakes. Wants a stricter schedule/plan to follow. Busy life/schedule with toddler. Struggling with weight management. In past has met with diet therapist who said she is not eating enough. Was told to aim for [id number] kcals. Experienced some increase in bloating when ate more for 1 month. Has had non-consistent eating patterns for years. Denies any changes in bowel movements. Normal BMs daily, no abd cramping, no daily bloating. Allergic to most squash. Diet recall: B-sometimes egg and toast or just toast -eating with daughter L-chicken wrap - chicken, cheese, veg D-frozen meal - 560 cals, 27 g fat, 15 g SFA, 1 g trans fat, 1200 mg sodium 1 glass wine water 5-6 hrs sleep Activity: at home workouts 3-4x/wk for 30-60 mins (pilates, zoom, dance), 3+ miles walks, active movement with toddler daily Report normal labs completed through another provider. Ht: 5 ft 6 in Wt: 287 lb BMI: 46.3 UBW: - Nutrition Diagnosis: Food and nutrition related knowledge deficit r/t wanting help forming consistent healthy dietary plan aeb pt assessment Intakes of fat inconsistent with needs r/t food and nutrition related knowledge deficit aeb frozen dinner with high intake saturated fat and trans fat Interventions: Discussed and provided handouts via email w/ pt permission -Macros and caloric needs, portion sizing -Balanced meals in line with MeD style/myplate of eating -Label reading for fats, added sugars and sodium and fiber -Brainstormed a realistic consistent dietary pattern daily for patient to carry out, smaller freq meals most realistic for pt Goals: -breakfast, snack mid-morning (pb+apples (crackers as needed) or cheese+apple), lunch + side, dinner leftovers (meat, carb, veg) can split into 2 smaller portions. Example dietary pattern emailed. -if choosing packaged meals/food, check sat. fat and trans fat using label guide EER: [id number], 25-28 g fiber Monitoring/Evaluations: f/u in 1 month Electronically Signed by: Jayla Garcia 10/04/24 10:39 Clinical Dietitian [address] [id number]
== END ==
PROVIDERS: PCP Family Medicine; Referring Provider Family Medicine
DX: E66.9 Obesity, unspecified (principal); K58.9 Irritable bowel syndrome, unspecified; Z68.41 Body mass index [BMI] 40.0-44.9, adult
CPT/HCPCS: 97802